=== PATIENT | female | born 1990 | race African-American/Black ===

== ENCOUNTER 2019-03-30 20:22 | Emergency (ER) | payer OTHER ==
[~2019-03-30] VITALS: Ht 162.6 cm; Wt 90.7 kg
[2019-03-30 22:02] VITALS: BP 148/83
== END 2019-03-30 22:00 | disposition home or self-care (01) ==
LOC: ER 20:22
DX: N89.8 Other specified noninflammatory disorders of vagina (principal); Z88.1 Allergy status to other antibiotic agents; Z91.040 Latex allergy status